=== PATIENT | male | born 1985 | race Hispanic/Latino ===

== ENCOUNTER 2021-09-11 07:29 | Emergency (ER) | payer SELFPAY ==
[2021-09-11] MEDS ORDERED: Ketorolac Tromethamine 30 MG/ML VIAL ONE (08:28)
[2021-09-11] MEDS ORDERED: HYDROcodone/Acetaminophen 10/325 mg Tablet ONE (08:28)
== END 2021-09-11 08:58 | disposition home or self-care (01) ==
LOC: ERS 07:29
DX: M54.50 Low back pain, unspecified (principal)
CPT/HCPCS: 96372; 99283; J1885

== ENCOUNTER 2024-08-01 19:04 | Inpatient (IN) | payer SELFPAY ==
[2024-08-01 20:03] LABS: #Basophils Less than 0.03 10x3/uL (0.0-0.2); #Eosinophils Less than 0.03 10x3/uL (0.0-0.7); %Basophils 0.4 % (0.0-1.0); %Lymphocytes 13.2 % (21.0-51.0); %Monocytes 5.8 % (0.0-10.0); %Neutrophils 80.2 % (42.0-75.0); Hematocrit 42.8 % (42.0-52.0); Hemoglobin 15.8 g/dL (14.0-18.0); Mean Corpuscular HGB CONC 36.9 g/dL (32.0-36.0); Mean Corpuscular Volume 81.2 fL (78.0-98.0); Mean Platelet Volume 12.3 fL (7.4-10.4); Platelet Count 70 10x3/uL (130-400); RBC Distribution Width 12.5 % (11.5-14.5); Red Blood Cell (RBC) Count 5.27 mill/uL (4.70-6.10)
[2024-08-01 20:15] LABS: ALT (SGPT) 487 U/L (8-55); AST (SGOT) 639 U/L (5-34); Albumin 3.4 g/dL (3.5-5.0); Alkaline Phosphatase 222 U/L (40-110); Anion Gap 19 mmol/L (10-20); BUN (Urea Nitrogen) 29 mg/dL (8.9-20.6); Bilirubin, Total 3.9 mg/dL (0.2-1.2); Calc. Creatinine Clearance 0 mL/min (70-130); Calcium 8.4 mg/dL (7.8-10.44); Carbon Dioxide 14 mmol/L (22-29); Chloride 103 mmol/L (98-107); Estimated GFR 72; Glucose 121 mg/dL (70-105); Lipase 16 U/L (8-78); Potassium 3.4 mmol/L (3.5-5.1); Protein, Total 7.4 g/dL (6.0-8.3); Sodium 133 mmol/L (136-145)
[2024-08-01 20:29] LABS: Band 52 % (5-11); Large Platelets 4.9 % (0-5); Lymphocytes 7 % (21-51); Monocytes 2 % (0-10); Neutrophil 35 % (42-75); Plasma Cells 1 % (0-0); Platelet Adequacy Comment Platelets Decreased; Reactive Lymphocytes 3 % (0-10); Smudge Cells 8.8 %; Tear Drops SLIGHT = 2-5 cells HPF (0-1)
[2024-08-01 22:33] LABS: INR-International Normal Ratio 1.3; PTT 46.7 sec (22.9-36.1); Prothrombin Time 15.8 sec (12.0-14.7)
[2024-08-01] MEDS ORDERED: Ondansetron PF 4 MG/2 ML Vial ONE (22:34)
[2024-08-01] MEDS ORDERED: Ketorolac Tromethamine 30 MG (1 mL) VIAL ONE (22:35)
[2024-08-01] MEDS ORDERED: Potassium Chloride 20 MEQ TAB ONE (22:35)
[2024-08-01 22:54] LABS: Lactic Acid 1.74 mmol/L (0.5-2.2)
[2024-08-01 22:58] LABS: Acetaminophen Less than 10 mcg/mL (Less than 10); Alcohol Less than 10.0 mg/dL (Less than 10); CK (CPK) 617 U/L (30-200); Magnesium 2.1 mg/dL (1.6-2.6); Salicylate Less than 8.0 mg/dL (Less than 8.0)
[2024-08-02 00:12] LABS: MONO NEGATIVE CONTROL ZONE White (Negative) (White); MONO POSITIVE CONTROL Pink Line (Positive) (PINK/RED); Mononucleosis NEGATIVE (NEGATIVE)
[2024-08-02] MEDS ORDERED: Sodium Chloride 0.9% 100 ML ONE (00:18)
[2024-08-02] MEDS ORDERED: Piperacillin/Tazobactam 4.5 GM VIAL ONE (00:18)
[2024-08-02 01:23] VITALS: BMI 27.4
[2024-08-02 01:27] LABS: Actual Bicarbonate (HCO3v) 18.4 mEq/L (22-28); Base Excess -2.5 mEq/L (-2.0 to +3.0); Calcium, Ionized (venous) 1.01 mmol/L (1.16-1.32); Chloride (VBG) 103 mmol/L (98-106); Hematocrit-VBG 40 % (42.0-52.0); Hemoglobin (Hb) 13.5 g/dL (13.2-17.3); Potassium (VBG) 3.21 mmol/L (3.70-5.30); Sodium 133 mmol/L (133-146); pH (venous) 7.526 (7.32-7.43)
[2024-08-02 01:37] LABS: HBsAg Index 0.51 S/CO (0-0.99); Hep A IgM AB NONREACTIVE (NonReactive); Hep A IgM S/CO 0.18 S/CO (0-0.79); Hep B Core IgM Index 0.08 S/CO (0-0.79); Hep B Surf Ag NONREACTIVE S/CO (NonReactive); Hep C IgG Ab NONREACTIVE S/CO (NonReactive); Hep C Index 0.15 S/CO (0-0.79); Hepatitis B Core IgM Abs NONREACTIVE S/CO (NonReactive)
[2024-08-02] MEDS: Potassium Chloride 20 MEQ TAB PO SCH (01:42)
[2024-08-02 01:52] LABS: Anion Gap 14 mmol/L (10-20); BUN (Urea Nitrogen) 26 mg/dL (8.9-20.6); Calc. Creatinine Clearance 98 mL/min (70-130); Calcium 7.5 mg/dL (7.8-10.44); Carbon Dioxide 17 mmol/L (22-29); Chloride 103 mmol/L (98-107); Estimated GFR 91; Glucose 115 mg/dL (70-105); Potassium 3.1 mmol/L (3.5-5.1); Sodium 131 mmol/L (136-145)
[2024-08-02] MEDS: Lactated Ringer's 1,000 ML IV SCH (03:04)
[2024-08-02] MEDS: Piperacillin/Tazobactam 3.375 GM in Sodium Chloride 0.9% 100 ML IVPB SCH (03:04)
[2024-08-02 04:09] LABS: Bacteria/HPF None Seen HPF (None Seen); Bilirubin 1+ (Negative); Blood, Urine 2+ (Negative); CAUTI Indications for Culture Fever or rigors; Clarity Clear (Clear); Glucose, Urine (Dipstick) Normal (Negative); Ketone, Urine Trace mg/dL (Negative); Leukocyte Negative Leu/uL (Negative); Nitrite Negative (Negative); Protein, Urine (Dipstick) 100 mg/dL (Neg-Trace); Specific Gravity, Urine 1.036 (1.002-1.036); Squamous Epithelial 0-3 HPF (0-3); Urobilinogen Normal mg/dL (Less than 2)
[2024-08-02 04:20] LABS: Urine Culture Reflex No No
[2024-08-02 06:55] LABS: Hematocrit 34.7 % (42.0-52.0); Hemoglobin 12.7 g/dL (14.0-18.0); Mean Corpuscular HGB CONC 36.6 g/dL (32.0-36.0); Mean Corpuscular Hemoglobin 29.9 pg (27.0-31.0); Mean Corpuscular Volume 81.6 fL (78.0-98.0); Mean Platelet Volume 13.2 fL (7.4-10.4); Platelet Count 60 10x3/uL (130-400); RBC Distribution Width 12.7 % (11.5-14.5); Red Blood Cell (RBC) Count 4.25 mill/uL (4.70-6.10)
[2024-08-02 07:04] LABS: INR-International Normal Ratio 1.3; PTT 52.1 sec (22.9-36.1); Prothrombin Time 15.8 sec (12.0-14.7)
[2024-08-02 07:27] LABS: ALT (SGPT) 346 U/L (8-55); AST (SGOT) 461 U/L (5-34); Albumin 2.6 g/dL (3.5-5.0); Alkaline Phosphatase 171 U/L (40-110); Anion Gap 13 mmol/L (10-20); BUN (Urea Nitrogen) 27 mg/dL (8.9-20.6); Bilirubin, Total 3.5 mg/dL (0.2-1.2); CK (CPK) 807 U/L (30-200); Calc. Creatinine Clearance 100 mL/min (70-130); Calcium 7.5 mg/dL (7.8-10.44); Carbon Dioxide 19 mmol/L (22-29); Chloride 106 mmol/L (98-107); Estimated GFR 93; Globulin 2.9 g/dL (2.4-3.5); Glucose 98 mg/dL (70-105); Magnesium 1.8 mg/dL (1.6-2.6); Potassium 3.4 mmol/L (3.5-5.1); Protein, Total 5.5 g/dL (6.0-8.3); Sodium 135 mmol/L (136-145)
[2024-08-02 07:56] LABS: Band 42 % (5-11); Burr Cells SLIGHT = 2-5 cells HPF (0-1); Large Platelets 4.9 % (0-5); Lymphocytes 8 % (21-51); Macrocytosis SLIGHT = 6-15 cells HPF (0-5); Monocytes 1 % (0-10); Neutrophil 46 % (42-75); Platelet Adequacy Comment Platelets Decreased; Reactive Lymphocytes 1 % (0-10); Reflex for Review?? YES; Smudge Cells 25.5 %
[2024-08-02] MEDS: Pantoprazole 40 MG VIAL IVP SCH (08:36)
[2024-08-02] MEDS: FLU (Fluarix Triv) TS24-25(6MOS UP)/PF 45 MCG/0.5 ML Syringe IM ONE (11:13)
[2024-08-02] MEDS: Ondansetron PF 4 MG/2 ML Vial IVP PRN (11:18)
[2024-08-02] MEDS: Melatonin 3 MG TAB PO PRN (20:22)
[2024-08-02] MEDS: Acetaminophen 325 MG TAB PO PRN (20:23)
[2024-08-03 06:13] LABS: ALT (SGPT) 370 U/L (8-55); AST (SGOT) 622 U/L (5-34); Albumin 2.5 g/dL (3.5-5.0); Alkaline Phosphatase 200 U/L (40-110); Anion Gap 15 mmol/L (10-20); BUN (Urea Nitrogen) 20 mg/dL (8.9-20.6); Bilirubin, Total 4.8 mg/dL (0.2-1.2); Calc. Creatinine Clearance 131 mL/min (70-130); Calcium 7.6 mg/dL (7.8-10.44); Carbon Dioxide 19 mmol/L (22-29); Chloride 108 mmol/L (98-107); Estimated GFR 115; Glucose 94 mg/dL (70-105); Magnesium 2.2 mg/dL (1.6-2.6); Potassium 3.6 mmol/L (3.5-5.1); Protein, Total 5.5 g/dL (6.0-8.3); Sodium 138 mmol/L (136-145)
[2024-08-03 06:43] LABS: Hematocrit 35.4 % (42.0-52.0); Hemoglobin 12.6 g/dL (14.0-18.0); Mean Corpuscular HGB CONC 35.6 g/dL (32.0-36.0); Mean Corpuscular Hemoglobin 29.8 pg (27.0-31.0); Mean Corpuscular Volume 83.7 fL (78.0-98.0); Mean Platelet Volume 12.3 fL (7.4-10.4); Platelet Count 77 10x3/uL (130-400); RBC Distribution Width 13.3 % (11.5-14.5); Red Blood Cell (RBC) Count 4.23 mill/uL (4.70-6.10)
[2024-08-03 07:38] LABS: Band 28 % (5-11); Large Platelets 1.9 % (0-5); Lymphocytes 5 % (21-51); Monocytes 2 % (0-10); Neutrophil 63 % (42-75); Nucleated RBC (Manual Ct) 1 % (0); Platelet Adequacy Comment Platelets Decreased; Polychromasia SLIGHT = 2-3 cells HPF (0-2); Smudge Cells 19.4 %
[2024-08-04 05:20] LABS: #Basophils 0.03 10x3/uL (0.0-0.2); #Eosinophils Less than 0.03 10x3/uL (0.0-0.7); %Basophils 0.4 % (0.0-1.0); %Eosinophils 0.3 % (0.0-10.0); %Lymphocytes 34.3 % (21.0-51.0); %Monocytes 11.4 % (0.0-10.0); %Neutrophils 52.9 % (42.0-75.0); Hematocrit 31.7 % (42.0-52.0); Hemoglobin 11.3 g/dL (14.0-18.0); Mean Corpuscular HGB CONC 35.6 g/dL (32.0-36.0); Mean Corpuscular Hemoglobin 29.9 pg (27.0-31.0); Mean Corpuscular Volume 83.9 fL (78.0-98.0); Mean Platelet Volume 12.9 fL (7.4-10.4); Platelet Count 114 10x3/uL (130-400); RBC Distribution Width 13.4 % (11.5-14.5); Red Blood Cell (RBC) Count 3.78 mill/uL (4.70-6.10)
[2024-08-04 05:41] LABS: ALT (SGPT) 311 U/L (8-55); AST (SGOT) 483 U/L (5-34); Albumin 2.3 g/dL (3.5-5.0); Alkaline Phosphatase 290 U/L (40-110); Anion Gap 12 mmol/L (10-20); BUN (Urea Nitrogen) 15 mg/dL (8.9-20.6); Bilirubin, Total 5.1 mg/dL (0.2-1.2); Calc. Creatinine Clearance 124 mL/min (70-130); Calcium 7.5 mg/dL (7.8-10.44); Carbon Dioxide 20 mmol/L (22-29); Chloride 106 mmol/L (98-107); Estimated GFR 113; Globulin 2.9 g/dL (2.4-3.5); Glucose 131 mg/dL (70-105); Iron 44 ug/dL (65-175); Iron Binding Capacity, Total 174 mcg/dL (261-462); Potassium 3.3 mmol/L (3.5-5.1); Protein, Total 5.2 g/dL (6.0-8.3); Sodium 135 mmol/L (136-145)
[2024-08-04 12:53] LABS: ANA Symphony (Qualitative) Negative (Negative); ANA Symphony (Quantitative) 0.4 Ratio (< 0.7 Negative); EliA Vaculitis New Method **** NEW METHOD ****; Mitochondrial Ab 3.5 U/mL (<4 Negative); dsDNA IgG Antibody 1.8 IU/mL (<10 Negative)
[2024-08-05 06:12] LABS: EBV VCA IgM <36.0 U/mL (0.0-35.9)
[2024-08-05 14:05] LABS: #Basophils 0.06 10x3/uL (0.0-0.2); %Basophils 0.6 % (0.0-1.0); %Eosinophils 0.9 % (0.0-10.0); %Lymphocytes 28.5 % (21.0-51.0); %Monocytes 11.5 % (0.0-10.0); %Neutrophils 54.9 % (42.0-75.0); Hematocrit 35.1 % (42.0-52.0); Hemoglobin 12.4 g/dL (14.0-18.0); Mean Corpuscular HGB CONC 35.3 g/dL (32.0-36.0); Mean Corpuscular Hemoglobin 29.8 pg (27.0-31.0); Mean Corpuscular Volume 84.4 fL (78.0-98.0); Platelet Count 218 10x3/uL (130-400); RBC Distribution Width 13.9 % (11.5-14.5); Red Blood Cell (RBC) Count 4.16 mill/uL (4.70-6.10)
[2024-08-05 14:18] LABS: ALT (SGPT) 368 U/L (8-55); AST (SGOT) 405 U/L (5-34); Albumin 2.6 g/dL (3.5-5.0); Alkaline Phosphatase 444 U/L (40-110); Anion Gap 13 mmol/L (10-20); BUN (Urea Nitrogen) 11 mg/dL (8.9-20.6); Bilirubin, Total 6.1 mg/dL (0.2-1.2); Calc. Creatinine Clearance 148 mL/min (70-130); Calcium 7.8 mg/dL (7.8-10.44); Carbon Dioxide 20 mmol/L (22-29); Chloride 104 mmol/L (98-107); Estimated GFR 120; Globulin 3.5 g/dL (2.4-3.5); Glucose 109 mg/dL (70-105); Potassium 3.6 mmol/L (3.5-5.1); Protein, Total 6.1 g/dL (6.0-8.3); Sodium 133 mmol/L (136-145)
[2024-08-05 14:19] LABS: Prothrombin Time 13.4 sec (12.0-14.7)
[2024-08-06 04:47] LABS: Hematocrit 32.4 % (42.0-52.0); Hemoglobin 11.4 g/dL (14.0-18.0); Mean Corpuscular HGB CONC 35.2 g/dL (32.0-36.0); Mean Corpuscular Hemoglobin 29.7 pg (27.0-31.0); Mean Corpuscular Volume 84.4 fL (78.0-98.0); Mean Platelet Volume 11.7 fL (7.4-10.4); Platelet Count 240 10x3/uL (130-400); Red Blood Cell (RBC) Count 3.84 mill/uL (4.70-6.10)
[2024-08-06 04:58] LABS: ALT (SGPT) 346 U/L (8-55); AST (SGOT) 336 U/L (5-34); Albumin 2.3 g/dL (3.5-5.0); Alkaline Phosphatase 419 U/L (40-110); Anion Gap 12 mmol/L (10-20); BUN (Urea Nitrogen) 10 mg/dL (8.9-20.6); Bilirubin, Total 4.4 mg/dL (0.2-1.2); Calc. Creatinine Clearance 136 mL/min (70-130); Calcium 7.6 mg/dL (7.8-10.44); Carbon Dioxide 21 mmol/L (22-29); Chloride 105 mmol/L (98-107); Estimated GFR 117; Globulin 3.2 g/dL (2.4-3.5); Glucose 103 mg/dL (70-105); Potassium 3.4 mmol/L (3.5-5.1); Protein, Total 5.5 g/dL (6.0-8.3); Sodium 135 mmol/L (136-145)
[2024-08-06 05:23] LABS: Anisocytosis SLIGHT = 6-15 cells HPF (0-5); Band 10 % (5-11); Eosinophils 4 % (0-10); Hypochromia SLIGHT = 6-15 cells HPF (0-5); Lymphocytes 13 % (21-51); Monocytes 10 % (0-10); Myelocyte 2 % (0-0); Neutrophil 58 % (42-75); Platelet Adequacy Comment Platelets Normal; Polychromasia SLIGHT = 2-3 cells HPF (0-2); Reactive Lymphocytes 1 % (0-10); Target Cells SLIGHT = 2-5 cells HPF (0-1)
[2024-08-06] MEDS ORDERED: Electrolyte Replacement Protocol 1 EACH FS SCH (10:45)
[2024-08-06] MEDS: Potassium Chloride 20 MEQ TAB PO SCH (11:27)
[2024-08-06] MEDS ORDERED: Electrolyte Replacement Protocol FS PRN (15:45)
[2024-08-07 05:20] LABS: Hematocrit 33.1 % (42.0-52.0); Hemoglobin 11.7 g/dL (14.0-18.0); Mean Corpuscular HGB CONC 35.3 g/dL (32.0-36.0); Mean Corpuscular Hemoglobin 29.4 pg (27.0-31.0); Mean Corpuscular Volume 83.2 fL (78.0-98.0); Mean Platelet Volume 11.5 fL (7.4-10.4); Platelet Count 306 10x3/uL (130-400); RBC Distribution Width 14.2 % (11.5-14.5); Red Blood Cell (RBC) Count 3.98 mill/uL (4.70-6.10)
[2024-08-07 05:42] LABS: ALT (SGPT) 310 U/L (8-55); AST (SGOT) 215 U/L (5-34); Albumin 2.5 g/dL (3.5-5.0); Alkaline Phosphatase 393 U/L (40-110); Anion Gap 11 mmol/L (10-20); BUN (Urea Nitrogen) 10 mg/dL (8.9-20.6); Bilirubin, Total 2.7 mg/dL (0.2-1.2); Calc. Creatinine Clearance 154 mL/min (70-130); Calcium 7.9 mg/dL (7.8-10.44); Carbon Dioxide 22 mmol/L (22-29); Chloride 107 mmol/L (98-107); Estimated GFR 121; Globulin 3.4 g/dL (2.4-3.5); Glucose 109 mg/dL (70-105); Potassium 3.8 mmol/L (3.5-5.1); Protein, Total 5.9 g/dL (6.0-8.3); Sodium 136 mmol/L (136-145)
[2024-08-07 05:49] LABS: Anisocytosis SLIGHT = 6-15 cells HPF (0-5); Band 6 % (5-11); Eosinophils 5 % (0-10); Hypochromia SLIGHT = 6-15 cells HPF (0-5); Large Platelets 4.9 % (0-5); Lymphocytes 18 % (21-51); Metamyelocyte 1 % (0-0); Monocytes 9 % (0-10); Neutrophil 59 % (42-75); Platelet Adequacy Comment Platelets Normal; Target Cells SLIGHT = 2-5 cells HPF (0-1)
[2024-08-07 12:46] VITALS: BP 118/74; TEMP 98.2
[2024-08-07 18:13] LABS: Smooth Muscle Total ABS 12 Units (0-19)
[2024-08-08 05:10] LABS: CMV IgM AB Less than 30.0 AU/mL (0.0-29.9)
[2024-08-08 12:37] LABS: HSV 1 - DNA Negative (Negative); HSV 2 - DNA Negative (Negative)
[2024-08-08 16:13] LABS: CMV DNA-PCR Test Negative (Negative)
== END 2024-08-07 12:30 | disposition home or self-care (01) | DRG 871 ==
LOC: ERS 19:04 → SURG B 08-02 00:18
PROVIDERS: ADMIT Internal Medicine; ATTEND Family Medicine
DX: A41.89 Other specified sepsis (principal); J12.9 Viral pneumonia, unspecified; M62.82 Rhabdomyolysis; E87.6 Hypokalemia; N18.9 Chronic kidney disease, unspecified; D69.59 Other secondary thrombocytopenia
CPT/HCPCS: 36415; 71046; 74183; 76705; 80048; 80053; 80074; 80307; 81001; 82390; 82550; 82805; 83516; 83540; 83550; 83605; 83690; 83735; 84145; 85025; 85060; 85610; 85730; 86015; 86038; 86225; 86308; 86645; 86664; 86665; 87040; 87070; 87205; 87428; 87497; 87529; 87633; 93005; 96361; 96374; 96375; J1885; J2405; J2470; J2543; J7120